=== PATIENT | male | born 1955 | race Caucasian/White ===

== ENCOUNTER 2020-10-16 11:00 | Outpatient (CLI) | payer MEDICARE, BC, SELFPAY ==
--- NOTE | ~2020-10-16 | XR_ITS ---
XR abdomen/kub 1V DATE: 10/16/2020 11:22 INDICATION: Gross hematuria. Kidney stones. TECHNIQUE: AP projection, 2 views COMPARISON: 12/30/2018 KUB. FINDINGS: Approximately 7 mm calcification overlies the upper pole left kidney. Approximately 8 mm ca lcified. Overlies the lower pole of the left kidney. No visceromegaly is evident. The psoas shadows are intact. No evidence of bowel obstruction. Numerous bilateral calcified pelvic phleboliths. IMPRESSION: Left nephrolithiasis Reviewed, dictated and finalized at [facility]. Reviewed, dictated and finalized at location [facility]. NFORMATICS SPECIALIST IMPRESSION: Left nephrolithiasis
== END 2020-10-16 11:01 | disposition home or self-care (01) ==
LOC: ANHIMG 11:05
PROVIDERS: PCP Emergency Medicine; Visit Provider Urology
DX: R31.0 Gross hematuria (principal); N20.0 Calculus of kidney
CPT/HCPCS: 74018

== ENCOUNTER → 2021-01-20 00:57 | Outpatient (CLI) | payer MEDICARE, BC, SELFPAY ==
[2021-01-21 00:06] LABS: SARS-CoV-2 RNA PCR Negative
== END ==
PROVIDERS: PCP Emergency Medicine; Visit Provider Internal Medicine Gastroenterology
DX: Z01.812 Encounter for preprocedural laboratory examination (principal); Z20.822 Contact with and (suspected) exposure to COVID-19
CPT/HCPCS: C9803; U0003; U0005

== ENCOUNTER 2021-01-23 02:45 | Day surgery (SDC) | payer MEDICARE, BC, SELFPAY ==
[2021-01-11 13:23] VITALS: BMI 32.8
[2021-01-23 10:44] VITALS: BP 127/86; PULSE 77; RESP 20; TEMP 35.9; O2SAT 97; BMI 33.0
[2021-01-23] MEDS: LACTATED RINGERS 1,000 ML 150 ML IV CONT (10:55)
[2021-01-23 10:56] LABS: Glucose Point of Care 126 (65-105)
--- NOTE | 2021-01-23 11:03 | WPDANESEPPF ---
Anes - Initial Pre Proc Eval Procedure: Operation Date: 01/23/21 11:30 Proposed Procedures p Screening Colonoscopy - Brigido Dey MD Date/Time: 01/23/21 11:03 Surgeon: Brigido Dey MD Pre Op Diagnosis: neoplasm screening Patient Data Age: 65 Gender: M Height: 6 ft Weight: 110.3 kg Last Vital Signs Temp 96.7 F L 01/23/21 10:44 Pulse 77 01/23/21 10:44 Resp 20 01/23/21 10:44 BP 127/86 01/23/21 10:44 Pulse Ox 97 01/23/21 10:44 Allergies Allergy/AdvReac Type Severity Reaction Status Date / Time No Known Allergies Allergy Verified 01/23/21 10:31 Home Medications Medication Instructions Recorded Confirmed Type albuterol sulfate 2.5 mg INHALATION Q6H 07/27/20 01/23/21 History amlodipine 10 mg tablet 10 mg PO DAILY 07/27/20 01/23/21 History antiarthritic combination no.2 900 900 mg PO DAILY 07/27/20 01/23/21 History mg tablet aspirin 325 mg tablet 325 mg PO DAILY 07/27/20 01/23/21 History cholecalciferol (vitamin D3) 50 50 mcg PO DAILY 07/27/20 01/23/21 History mcg (2,000 unit) capsule multivitamin 1 tablet PO DAILY 07/27/20 01/23/21 History zolpidem 10 mg tablet 10 mg PO .bedtime tablet 07/27/20 01/23/21 History calcium citrate-vitamin D3 1 tablet PO DAILY 01/11/21 01/23/21 History [Calcium Citrate + D] dulaglutide [Trulicity] See Rx Instructions .ROUTE .COMPLEX 01/11/21 01/23/21 History metoprolol succinate 50 mg PO DAILY 01/11/21 01/23/21 History rosuvastatin 40 mg PO DAILY 01/11/21 01/23/21 History Laboratory Tests 01/23/21 10:49 POC Capillary Glucose 126 mg/dl H mg/dl (65-105) Patient hx anesthesia problems: none Family hx anesthesia problems: none PMFSH Past Medical History Medical History (Updated 07/28/20 @ 13:59 by Augusto Manuel APRN) Asthma Essential hypertension Insomnia Kidney stones Obstructive sleep apnea Family History Family History Mother Acute myocardial infarction, Onset Age: 83 Pulmonary fibrosis Osteoporosis Daughter Migraine Father Hypertension COPD (chronic obstructive pulmonary disease) Tongue cancer Sibling Brain tumor Son Migraine Social History Social History Smoking status: Never smoker Alcohol intake: never Substance use: never Substance use type: does not use Living arrangements: with family Gender identity (if verbalized by the patient): Male Spiritual care concerns: No Anes - Eval Final PreProcedure Day of Procedure 01/23/21 11:03 Patient weight: obese Heart: regular rate and rhythm Lungs: clear to auscultation Airway: Mallampati scale class III Neurological: alert and oriented Last oral intake: >/= 8 hours ASA classification: III Emergent: no Anesthetic plan: proceed Anesthesia type and monitoring: general GIVS and standard monitoring Informed Consent: The patient's anesthetic plan and its attendant risks and benefits were discussed with the patient/family/POA. Questions were solicited and answers provided to the satisfaction of the patient/family/POA.
[2021-01-23 11:57] VITALS: BP 112/57; PULSE 75; RESP 16; O2SAT 98
--- NOTE | 2021-01-23 12:01 | PM.HPGS ---
History of Present Illness History of Present Illness Consent: Risks, benefits, and alternatives have been discussed and questions answered. Patient agrees to proceed with procedure. Chief complaint: neoplasm screening Narrative: Jhony Martinez is a 65 year old male referred for colon cancer screening. He had a polyp removed about 12 years ago Review of Systems Review of Systems: All systems reviewed & are unremarkable except as noted in HPI and below PMFSH Past Medical History Medical History Asthma Essential hypertension Insomnia Kidney stones Obstructive sleep apnea Family History Family History Mother Acute myocardial infarction, Onset Age: 83 Pulmonary fibrosis Osteoporosis Daughter Migraine Father Hypertension COPD (chronic obstructive pulmonary disease) Tongue cancer Sibling Brain tumor Son Migraine Social History Social History Smoking status: Never smoker Alcohol intake: never Substance use: never Substance use type: does not use Living arrangements: with family Gender identity (if verbalized by the patient): Male Spiritual care concerns: No Meds Home Medications and Allergies Home Medications Medication Instructions Recorded Confirmed Type albuterol sulfate 2.5 mg INHALATION Q6H 07/27/20 01/23/21 History amlodipine 10 mg tablet 10 mg PO DAILY 07/27/20 01/23/21 History antiarthritic combination no.2 900 900 mg PO DAILY 07/27/20 01/23/21 History mg tablet aspirin 325 mg tablet 325 mg PO DAILY 07/27/20 01/23/21 History cholecalciferol (vitamin D3) 50 50 mcg PO DAILY 07/27/20 01/23/21 History mcg (2,000 unit) capsule multivitamin 1 tablet PO DAILY 07/27/20 01/23/21 History zolpidem 10 mg tablet 10 mg PO .bedtime tablet 07/27/20 01/23/21 History Trulicity See Rx Instructions .ROUTE .COMPLEX 01/11/21 01/23/21 History calcium citrate-vitamin D3 1 tablet PO DAILY 01/11/21 01/23/21 History [Calcium Citrate + D] metoprolol succinate 50 mg PO DAILY 01/11/21 01/23/21 History rosuvastatin 40 mg PO DAILY 01/11/21 01/23/21 History Allergies Allergy/AdvReac Type Severity Reaction Status Date / Time No Known Allergies Allergy Verified 01/23/21 10:31 Vital Signs Vital Signs - 24 hr 01/23/21 10:44 Temperature 35.9 C L Pulse Rate 77 Respiratory Rate 20 Blood Pressure 127/86 Pulse Oximetry 97 Exam Resp: Auscultation: clear to auscultation bilaterally Cardio: Rate: regular rate Rhythm: regular rhythm GI: GI Palp: Yes Soft to palpation and No Tenderness to palpation present (GI) Assessment and Plan Assessment and plan (1) Colon cancer screening: Code(s): Z12.11 - Encounter for screening for malignant neoplasm of colon Status: Acute Assessment and Plan: Colonoscopy with possible biopsy or polypectomy or cautery or injection of substances.
[2021-01-23 12:07] VITALS: BP 107/59; PULSE 73; RESP 24; O2SAT 97
[2021-01-23 12:17] VITALS: BP 110/62; PULSE 70; RESP 20; O2SAT 98
== END 2021-01-23 12:30 | disposition home or self-care (01) ==
PROVIDERS: PCP Emergency Medicine; Visit Provider Internal Medicine Gastroenterology
PROC: 0DJD8ZZ Inspection of Lower Intestinal Tract, Via Natural or Artificial Opening Endoscopic (ICD-10-PCS; CPT 45378; principal; 2021-01-23 11:30)
DX: Z12.11 Encounter for screening for malignant neoplasm of colon (principal); Z86.010 Personal history of colon polyps; I10 Essential (primary) hypertension; J45.909 Unspecified asthma, uncomplicated; G47.33 Obstructive sleep apnea (adult) (pediatric); Z79.51 Long term (current) use of inhaled steroids; Z79.82 Long term (current) use of aspirin; E66.9 Obesity, unspecified; Z68.33 Body mass index [BMI] 33.0-33.9, adult
CPT/HCPCS: G0105; 82948; J2001; J2704; J7120

== ENCOUNTER 2022-07-19 08:32 | Outpatient (CLI) | payer MEDICARE, BC, SELFPAY ==
[2022-07-19 09:29] LABS: Alanine Aminotransferase 37 U/L (6-50); Albumin Level 4.4 g/dL (3.5-5.1); Alkaline Phosphatase 87 U/L (38-126); Anion Gap 10 mmol/L (8-16); Aspartate Amino Transferase 36 U/L (17-59); Bilirubin,Total 0.4 mg/dL (0.2-1.3); Blood Urea Nitrogen 16 mg/dL (9-20); Calcium 8.7 mg/dL (8.4-10.2); Carbon Dioxide 27 mmol/L (22-30); Chloride 105 mmol/L (98-107); Estimated Glomerular Filt Rate > 60; Glucose 128 mg/dL (65-110); Potassium 3.7 mmol/L (3.4-5.0); Sodium 142 mmol/L (137-145)
== END 2022-07-19 08:33 | disposition home or self-care (01) ==
PROVIDERS: PCP Emergency Medicine; Visit Provider Internal Medicine Cardiovascular Disease
DX: E11.59 Type 2 diabetes mellitus with other circulatory complications (principal); I15.2 Hypertension secondary to endocrine disorders
CPT/HCPCS: 36415; 80053

== ENCOUNTER 2024-02-09 14:12 | Outpatient (CLI) | payer MEDICARE, BC, SELFPAY ==
--- NOTE | 2024-02-09 14:25 | ECG_ITS ---
SEE SCANNED COPY FOR CONFIRMED REPORT MTDD
[2024-02-09 15:12] LABS: Anion Gap 7 mmol/L (4-12); Blood Urea Nitrogen 17 mg/dL (9-20); Calcium 9.4 mg/dL (8.4-10.2); Carbon Dioxide 29 mmol/L (22-30); Chloride 104 mmol/L (98-107); Estimated Glomerular Filt Rate > 60; Glucose 154 mg/dL (65-110); Potassium 3.9 mmol/L (3.4-5.0); Sodium 140 mmol/L (137-145)
[2024-02-09 15:14] LABS: Partial Thromboplastin Time 29.2 Seconds (22.3-36.8); Prothrombin Time 13.3 Seconds (11.1-14.7)
== END 2024-02-09 14:13 | disposition home or self-care (01) ==
PROVIDERS: Anesthesiology; PCP Emergency Medicine; Visit Provider Urology
DX: N20.0 Calculus of kidney (principal); I10 Essential (primary) hypertension; E11.9 Type 2 diabetes mellitus without complications; Z01.818 Encounter for other preprocedural examination
CPT/HCPCS: 36415; 80048; 85610; 85730; 87086; 93005

== ENCOUNTER 2024-02-13 00:57 | Day surgery (SDC) | payer MEDICARE, BC, SELFPAY ==
[2024-02-09 09:33] VITALS: BMI 32.5
--- NOTE | 2024-02-09 09:59 | PC.NURSE ---
Report to the Outpatient Waiting Room, entrance under the green pavilion located off [facility], at time __12:00PM on date ____02/13/24___. Planned Procedure Time: __2:30PM . Time changes happen often and if your time is changed the preop area will call you the afternoon before. - You and your visitor will be asked to self-screen and do not enter if you have any COVID symptoms. - A mask is optional within the hospital at this time. Patients may have clear liquids (water, carbonated beverages, clear teas, apple juice) until 3 hours prior to surgery with a maximum of 20 ounces. - No food from midnight until time of surgery. Take the following medications with a SIP of water the morning of surgery: AMLODIPINE, METOPROLOL DO NOT STOP ANY OF YOUR OTHER PRESCRIPTION MEDICATIONS PRIOR TO SURGERY ?EXCEPT THE FOLLOWING Medications to discontinue per physician __HOLD ASPIRIN AND ALL VITAMINS/SUPPLEMENTS 7 DAYS PRE-OP PER DR AGUIRRE Date to take last dose 02/05/24 Please no make-up, nail chadian, hairspray, perfume, deodorant, or body powder the day of surgery. No jewelry (including any body piercings) or valuables the day of surgery, leave them at home. Please take a shower or bath the night before, or the morning of, surgery with an antibacterial soap. Wear comfortable, loose fitting clothing. - Jewelry must be removed prior to entering the operating room. Rings and piercings that are not removed may be cut off. - The hospital will not accept responsibility for valuables. - Please leave all valuables, including medications, at home the day of surgery. If you are going home after surgery, a licensed bus driver school must drive you home. - NO public transportation without another adult if you receive anesthesia. - We recommend that an adult stay with you for 24 hours following discharge. - We also recommend that you do not drive, make important decision, drink alcoholic beverages, or take any drugs that were not prescribed by your health care provider for at least 24 hours after your discharge time. Follow any additional instructions given to you from your surgeon. If you or anyone in your household have experienced Covid symptoms in the past week, please notify your surgeon or the nurse liaison at the phone number below for possible testing. Telephone instructions given to ___PATIENT and asked if any additional questions and then verbalized understanding. Patient advised to call surgeon office or pre surgery nurse liaison [phone] if any additional questions.
--- NOTE | 2024-02-12 08:32 | PM.HPGS ---
History of Present Illness History of Present Illness Consent: Risks, benefits, and alternatives have been discussed and questions answered. Patient agrees to proceed with procedure. Chief complaint: bladder and kidney stones Narrative: Jhony Martinez is a 69 year old male with a history of recurrent urolithiasis who has required ESWL in the past. Imaging several months ago revealed two 6 mm stones in his left kidney. One of these passed spontaneously. He now elects for ESWL for the residual left renal s He is aware the risk including, but not limited to, adverse cardiopulmonary events, hematuria, perinephric hematoma and need for additional procedures. tone. Review of Systems Review of Systems: All systems reviewed & are unremarkable except as noted in HPI and below PMFSH Past Medical History Medical History Asthma Essential hypertension Insomnia Kidney stones Obstructive sleep apnea Family History Family History Mother Acute myocardial infarction, Onset Age: 83 Pulmonary fibrosis Osteoporosis Daughter Migraine Father Hypertension COPD (chronic obstructive pulmonary disease) Tongue cancer Sibling Brain tumor Son Migraine Social History Social History Smoking status: Never smoker Alcohol intake: never Substance use: never Substance use type: does not use Living arrangements: with family Additional living arrangements comments: Gender identity (if verbalized by the patient): Male Spiritual care concerns: No Meds Home Medications and Allergies Home Medications Medication Instructions Recorded Confirmed Type albuterol sulfate 2.5 mg/3 mL 2.5 mg inhalation Q6H PRN 07/27/20 02/09/24 History (0.083 %) solution for nebulization Shortness Of Breath Or Wheezing amlodipine 10 mg tablet (Norvasc) 10 mg PO QAM 07/27/20 02/09/24 History cholecalciferol (vitamin D3) 50 50 mcg PO DAILY 07/27/20 02/09/24 History mcg (2,000 unit) capsule multivitamin 1 tablet PO DAILY 07/27/20 02/09/24 History zolpidem 10 mg tablet (Ambien) 10 mg PO .bedtime 07/27/20 02/09/24 History calcium citrate 315 mg-vitamin D3 1 tablet PO DAILY 01/11/21 02/09/24 History 5 mcg (200 unit) tablet (Calcium Citrate + D) metoprolol succinate 50 mg 50 mg PO QAM 01/11/21 02/09/24 History tablet,extended release 24 hr rosuvastatin 40 mg tablet 40 mg PO HS 01/11/21 02/09/24 History albuterol sulfate 90 mcg/actuation 1 - 2 puff inhalation Q4-6H PRN 03/12/22 02/09/24 Rx aerosol inhaler shortness of breath or wheezing #8.5 grams aspirin 81 mg tablet,delayed 81 mg PO DAILY 02/09/24 02/09/24 History release (Adult Low Dose Aspirin) glucosamine sulf dipot 1 cap PO DAILY 02/09/24 02/09/24 History chlr,msm,chond 550 mg-C 30 mg-leyda 1 mg capsule (Glucosamine Chondroitin) losartan 50 mg tablet 50 mg PO HS 02/09/24 02/09/24 History tamsulosin 0.4 mg capsule 0.4 mg PO DAILY 02/09/24 02/09/24 History tirzepatide 5 mg/0.5 mL 5 mg subcut WEEKLY 02/09/24 02/09/24 History subcutaneous pen injector (Mounjaro) Allergies Allergy/AdvReac Type Severity Reaction Status Date / Time No Known Allergies Allergy Verified 02/09/24 09:25 Exam Const: General: no acute distress Resp: Effort & Inspection: normal respiratory effort GI: Inspection: non-distended GI Palp: No abdominal tenderness and No Guarding due to palpation present (GI) Auscultation: normal bowel sounds Assessment and Plan Assessment and plan (1) Left renal stone: Code(s): N20.0 - Calculus of kidney Status: Acute
[2024-02-13] VITALS (9 sets, daily range): BP systolic 106–134; BP diastolic 63–85; PULSE 62–78; RESP 12–16; TEMP 36.3–36.7; O2SAT 96–100; BMI 32.8
--- NOTE | ~2024-02-13 | XR_ITS ---
XR abdomen/kub 1V 02/13/2024 12:16 Indication: Preop ESWL Procedure: KUB Comparison: 10/16/2020 Findings: Bowel gas pattern nonobstructive. There is a left renal stone. There are bladder stones. Errol wel gas pattern nonobstructive. No acute osseous abnormality. Impression: 1: Left renal and bladder stones. Reviewed, dictated and finalized at location B. Impression: 1: Left renal and bladder stones.
--- NOTE | 2024-02-13 06:19 | WPDHPUPDATE1 ---
History and Physical Update Update Date/Time: 02/13/24 06:19 History and Physical has been reviewed, including an updated exam of the patient. There are NO changes in the patient's condition. Risks, benefits, and alternatives have been discussed and questions answered. Patient agrees to proceed with procedure.
--- NOTE | 2024-02-13 12:40 | WPDANESEPPF ---
Anes - Initial Pre Proc Eval Procedure: Operation Date: 02/13/24 14:00 Proposed Procedures p Left Extracorporeal Shock Wave Lithotripsy, - João Crane MD s Cystoscopy, Holmium Laser Lithotripsy, Bladder Stone Extraction, Left Ureteral Stent, Possible Right Ureteroscopy with Right Stone Extraction - João Crane MD Date/Time: 02/13/24 12:40 Surgeon: João Crane MD Pre Op Diagnosis: bladder and kidney stones Patient Data Age: 69 Gender: M Height: 1.8 m Weight: 106 kg Allergies Allergy/AdvReac Type Severity Reaction Status Date / Time No Known Allergies Allergy Verified 02/09/24 09:25 Home Medications Medication Instructions Recorded Confirmed Type albuterol sulfate 2.5 mg/3 mL 2.5 mg inhalation Q6H PRN 07/27/20 02/09/24 History (0.083 %) solution for nebulization Shortness Of Breath Or Wheezing amlodipine 10 mg tablet (Norvasc) 10 mg PO QAM 07/27/20 02/09/24 History cholecalciferol (vitamin D3) 50 50 mcg PO DAILY 07/27/20 02/09/24 History mcg (2,000 unit) capsule multivitamin 1 tablet PO DAILY 07/27/20 02/09/24 History zolpidem 10 mg tablet (Ambien) 10 mg PO .bedtime 07/27/20 02/09/24 History calcium citrate 315 mg-vitamin D3 1 tablet PO DAILY 01/11/21 02/09/24 History 5 mcg (200 unit) tablet (Calcium Citrate + D) metoprolol succinate 50 mg 50 mg PO QAM 01/11/21 02/09/24 History tablet,extended release 24 hr rosuvastatin 40 mg tablet 40 mg PO HS 01/11/21 02/09/24 History albuterol sulfate 90 mcg/actuation 1 - 2 puff inhalation Q4-6H PRN 03/12/22 02/09/24 Rx aerosol inhaler shortness of breath or wheezing #8.5 grams aspirin 81 mg tablet,delayed 81 mg PO DAILY 02/09/24 02/09/24 History release (Adult Low Dose Aspirin) glucosamine sulf dipot 1 cap PO DAILY 02/09/24 02/09/24 History chlr,msm,chond 550 mg-C 30 mg-leyda 1 mg capsule (Glucosamine Chondroitin) losartan 50 mg tablet 50 mg PO HS 02/09/24 02/09/24 History tamsulosin 0.4 mg capsule 0.4 mg PO DAILY 02/09/24 02/09/24 History tirzepatide 5 mg/0.5 mL 5 mg subcut WEEKLY 02/09/24 02/09/24 History subcutaneous pen injector (Mounjaro) Patient hx anesthesia problems: none Family hx anesthesia problems: none Results Review: All pre-operative results and documents have been reviewed as part of the pre-operative evaluation. [facility] Past Medical History Medical History Asthma Essential hypertension Insomnia Kidney stones Obstructive sleep apnea Family History Family History Mother Acute myocardial infarction, Onset Age: 83 Pulmonary fibrosis Osteoporosis Daughter Migraine Father Hypertension COPD (chronic obstructive pulmonary disease) Tongue cancer Sibling Brain tumor Son Migraine Social History Social History Smoking status: Never smoker Alcohol intake: never Substance use: never Substance use type: does not use Living arrangements: with family Additional living arrangements comments: Gender identity (if verbalized by the patient): Male Spiritual care concerns: No Anes - Eval Final PreProcedure Day of Procedure 02/13/24 12:40 Patient weight: obese Heart: regular rate and rhythm Lungs: clear to auscultation Airway: Mallampati scale class III Neurological: alert and oriented Last oral intake: >/= 8 hours ASA classification: III Emergent: no Anesthetic plan: proceed Anesthesia type and monitoring: general LMA and standard monitoring Results Review: All pre-operative results and documents have been reviewed as part of the pre-operative evaluation. Informed Consent: The patient's anesthetic plan and its attendant risks and benefits were discussed with the patient/family/POA. Questions were solicited and answers provided to the satisfaction of the patient/family/P
[2024-02-13] MEDS: LACTATED RINGERS 1,000 ML 30 ML IV CONT ×2 (12:45→14:52)
[2024-02-13 12:55] LABS: Glucose Point of Care 122 mg/dl (65-105)
[2024-02-13] MEDS: ceFAZolin 2 GM/D5W 50 ML 2 GM/50 ML BAG IVPB (13:39)
--- NOTE | 2024-02-13 14:31 | W.PM.PROC2 ---
Procedure Note - Detailed Date of Procedure 02/13/24 Pre-op Diagnosis Bladder, left kidney stone, possible right ureteral stone Post-op Diagnosis Other ( 1. 1.7 cm bladder stone - 2. 1.5 cm left renal stones space space - 3. No right ureteral stone) Procedure Performed 1. Cystoscopy with right ureteroscopy 2. Left stent placement 3. Laser lithotripsy and extraction bladder stone 4. Left ESWL Surgeon João Crane MD Anesthesia General Description of Procedure patient is brought to the operative suite where he was prepped and draped in routine sterile fashion while in a dorsal lithotomy position after the uneventful induction of a general anesthetic. Cystoscopy was undertaken with a 19 F flexible cystoscope. A 0.035 in glidewire was advanced into his right renal pelvis. The distal ureter was dilated with an 8 F/10 F dilator. Ureteroscopy was undertaken with a short tapered semi-rigid ureteral scope to the vessels. There are no distal stones suggesting has spontaneously passed the stone was previously identified on imaging. then placed a 0.035 in glidewire to the right renal pelvis under fluoroscopy I placed a 4.8 F variable length stent with proximal coil in the renal pelvis distal coil in the bladder. Using a 1000 micron holmium laser fiber fractured the large bladder stone into pieces which could evacuated with the Zbigniew the focal point of Lithotripter was placed in his large left renal stone where 2500 shocks were delivered at a power setting to 4. There appeared to be good fragmentation that stone. Patient tolerated this procedure well was taken the recovery in good .condition Drains Yes Packing No Pathology Yes Complications No immediate complications Disposition PACU
[2024-02-13 15:00] LABS: Glucose Point of Care 92 mg/dl (65-105)
[2024-02-13] MEDS: fentaNYL CITRATE INJ (*CRX) 100 MCG/2 ML VIAL 25 MCG IV PUSH ×5 (15:12→16:57)
[2024-02-13] MEDS: oxyCODONE HCL (*CRX) 5 MG TAB IR PO (16:19)
[2024-02-13] MEDS: KETOROLAC 30 MG/ML VIAL (*BKC) IV PUSH (17:11)
== END 2024-02-13 17:40 | disposition home or self-care (01) ==
PROVIDERS: PCP Registered Nurse; Visit Provider Urology
PROC: (CPT 50590; principal; 2024-02-13 14:00)
PROC: (CPT 52352; 2024-02-13 14:00)
DX: N20.0 Calculus of kidney (principal); N21.0 Calculus in bladder; I10 Essential (primary) hypertension; J45.909 Unspecified asthma, uncomplicated; G47.33 Obstructive sleep apnea (adult) (pediatric); G47.00 Insomnia, unspecified; E66.9 Obesity, unspecified; Z68.32 Body mass index [BMI] 32.0-32.9, adult; Z79.51 Long term (current) use of inhaled steroids; Z79.82 Long term (current) use of aspirin; Z79.85 Long-term (current) use of injectable non-insulin antidiabetic drugs
CPT/HCPCS: 50590; 52332; 52317; 74018; 82365; 82948; 88300; A9270; C1769; C2617; J0690; J1100; J1596; J1885; J2250; J2405; J2704; J3010; J7030; J7120

== ENCOUNTER 2024-04-21 09:13 | Outpatient (CLI) | payer MEDICARE, BC, SELFPAY ==
[2024-04-21 10:50] LABS: Anion Gap 7 mmol/L (4-12); Blood Urea Nitrogen 16 mg/dL (9-20); Calcium 9.2 mg/dL (8.4-10.2); Carbon Dioxide 31 mmol/L (22-30); Chloride 103 mmol/L (98-107); Estimated Glomerular Filt Rate > 60; Glucose 145 mg/dL (65-110); Potassium 4.2 mmol/L (3.4-5.0); Sodium 141 mmol/L (137-145)
== END 2024-04-21 09:14 | disposition home or self-care (01) ==
LOC: ANHSURGERY 09:17
PROVIDERS: Anesthesiology; PCP Registered Nurse; Visit Provider Surgery
DX: Z01.818 Encounter for other preprocedural examination (principal); K40.90 Unilateral inguinal hernia, without obstruction or gangrene, not specified as recurrent
CPT/HCPCS: 36415; 80048; 86850; 86900; 86901

== ENCOUNTER 2024-04-23 00:21 | Day surgery (SDC) | payer MEDICARE, BC, SELFPAY ==
[2024-04-20 11:05] VITALS: BMI 30.6
--- NOTE | 2024-04-20 11:06 | PC.NURSE ---
Report to the Outpatient Waiting Room, entrance under the green pavilion located off [facility], at time _1100_ on date _[id number]_. Planned Procedure Time: _1pm_. Time changes happen often and if your time is changed the preop area will call you the afternoon before. - You and your visitor will be asked to self-screen and do not enter if you have any COVID symptoms. - A mask is optional within the hospital at this time. Patients may have clear liquids (water, carbonated beverages, clear teas, apple juice) until 3 hours prior to surgery with a maximum of 20 ounces. - No food from midnight until time of surgery Take the following medications with a SIP of water the morning of surgery: __Amlodipine and Metoprolol DO NOT STOP ANY OF YOUR OTHER PRESCRIPTION MEDICATIONS PRIOR TO SURGERY ?EXCEPT THE FOLLOWING Medications to discontinue per physician All vitamins and supplements Date to take last dose___Stop today. Please no make-up, nail welsh, hairspray, perfume, deodorant, or body powder the day of surgery. No jewelry (including any body piercings) or valuables the day of surgery, leave them at home. Please take a shower or bath the night before, or the morning of, surgery with an antibacterial soap. Wear comfortable, loose fitting clothing. - Jewelry must be removed prior to entering the operating room. Rings and piercings that are not removed may be cut off. - The hospital will not accept responsibility for valuables. - Please leave all valuables, including medications, at home the day of surgery. If you are going home after surgery, a licensed ice delivery driver must drive you home. - NO public transportation without another adult if you receive anesthesia. - We recommend that an adult stay with you for 24 hours following discharge. - We also recommend that you do not drive, make important decision, drink alcoholic beverages, or take any drugs that were not prescribed by your health care provider for at least 24 hours after your discharge time. Follow any additional instructions given to you from your surgeon. If you or anyone in your household have experienced Covid symptoms in the past week, please notify your surgeon or the nurse liaison at the phone number below for possible testing. Telephone instructions given to _Jhony and Oanh__and asked if any additional questions and then verbalized understanding. Patient advised to call surgeon office or pre surgery nurse liaison [phone] if any additional questions.
[2024-04-23] VITALS (9 sets, daily range): BP systolic 100–115; BP diastolic 60–72; PULSE 75–83; RESP 12–20; TEMP 36.2–36.7; O2SAT 92–100
[2024-04-23] MEDS: ACETAMINOPHEN 500 MG TABLET 1000 MG PO (10:00)
--- NOTE | 2024-04-23 10:10 | WPDANESEPPF ---
Anes - Initial Pre Proc Eval Procedure: Operation Date: 04/23/24 12:00 Proposed Procedures p Robotic Assisted Laparoscopic Left Inguinal Hernia Repair with Mesh, Possible Open - Taurus Dooley MD Date/Time: 04/23/24 10:10 Surgeon: Taurus Dooley MD Pre Op Diagnosis: Reducible left inguinal hernia Patient Data Age: 69 Gender: M Height: 1.8 m Weight: 99.5 kg Allergies Allergy/AdvReac Type Severity Reaction Status Date / Time No Known Allergies Allergy Verified 04/20/24 10:56 Home Medications Medication Instructions Recorded Confirmed Type amlodipine 10 mg tablet (Norvasc) 10 mg PO QAM 07/27/20 04/23/24 History cholecalciferol (vitamin D3) 50 50 mcg PO DAILY 07/27/20 04/23/24 History mcg (2,000 unit) capsule multivitamin 1 tablet PO DAILY 07/27/20 04/23/24 History zolpidem 10 mg tablet (Ambien) 10 mg PO .bedtime 07/27/20 04/23/24 History calcium citrate 315 mg-vitamin D3 1 tablet PO DAILY 01/11/21 04/23/24 History 5 mcg (200 unit) tablet (Calcium Citrate + D) rosuvastatin 40 mg tablet 40 mg PO HS 01/11/21 04/23/24 History aspirin 81 mg tablet,delayed 81 mg PO DAILY 02/09/24 04/23/24 History release (Adult Low Dose Aspirin) glucosamine sulf dipot 1 cap PO DAILY 02/09/24 04/23/24 History chlr,msm,chond 550 mg-C 30 mg-leyda 1 mg capsule (Glucosamine Chondroitin) losartan 50 mg tablet 50 mg PO HS 02/09/24 04/23/24 History tamsulosin 0.4 mg capsule 0.4 mg PO DAILY 02/09/24 04/23/24 History tirzepatide 5 mg/0.5 mL 5 mg subcut WEEKLY 02/09/24 04/23/24 History subcutaneous pen injector (Mounjaro) albuterol sulfate 90 mcg/actuation 1 - 2 puff inhalation Q4-6H PRN 03/12/24 04/20/24 Rx aerosol inhaler shortness of breath or wheezing #8.5 grams loratadine 10 mg tablet 10 mg PO DAILY 04/20/24 04/23/24 History metoprolol succinate 100 mg 100 mg PO DAILY 04/20/24 04/23/24 History tablet,extended release 24 hr montelukast 10 mg tablet 10 mg PO DAILY 04/20/24 04/23/24 History nitroglycerin 0.4 mg sublingual 0.4 mg sublingual TID PRN Chest 04/20/24 04/20/24 History tablet Pain Patient hx anesthesia problems: none Family hx anesthesia problems: none Results Review: All pre-operative results and documents have been reviewed as part of the pre-operative evaluation. [facility] Past Medical History Medical History (Updated 04/23/24 @ 10:11 by Tres Ambrose DO) Asthma CAD (coronary artery disease) Diabetes Essential hypertension Insomnia Kidney stones Obstructive sleep apnea TIA (transient ischemic attack) Surgical History Surgical History H/O nephrolithotomy with removal of calculi History of vasectomy Family History Family History Mother Acute myocardial infarction, Onset Age: 83 Pulmonary fibrosis Osteoporosis Daughter Migraine Father Hypertension COPD (chronic obstructive pulmonary disease) Tongue cancer Sibling Brain tumor Son Migraine Social History Social History Smoking status: Never smoker Alcohol intake: never Substance use: never Substance use type: does not use Do You Feel Safe in your Home?: Yes Lack of Transportation: No Lack of Food: Never True Current Housing: I Have Housing Concerned About Future Housing: No Difficulty Paying Gas/Electric Bills: No Difficulty Paying for Meds: No Currently Unemployed: No Education: Associate Degree Difficulty w/ Childcare or Family Care: No Living arrangements: with family Additional living arrangements comments: Occupation/Education: retired Gender identity (if verbalized by the patient): Male Spiritual care concerns: No Anes - Eval Final PreProcedure Day of Procedure 04/23/24 10:10 Patient weight: obese Heart: regular rate and rhythm Lungs: clear to a
[2024-04-23] MEDS: LACTATED RINGERS 1,000 ML 30 ML IV CONT ×3 (10:25→14:36)
[2024-04-23] MEDS: KETOROLAC 15 MG/ML VIAL (*BKC) IV PUSH (10:26)
[2024-04-23 10:39] LABS: Glucose Point of Care 132 mg/dl (65-105)
--- NOTE | 2024-04-23 11:49 | WPDHPUPDATE1 ---
History and Physical Update Update Date/Time: 04/23/24 11:49 History and Physical has been reviewed, including an updated exam of the patient. There are NO changes in the patient's condition. Risks, benefits, and alternatives have been discussed and questions answered. Patient agrees to proceed with procedure.
[2024-04-23] MEDS: ceFAZolin 2 GM/D5W 50 ML 2 GM/50 ML BAG IVPB (12:13)
[2024-04-23] MEDS: LIDO 1%/EPINEPHRINE 1:100,000 20 ML VIAL 30 ML INFILTRATE (12:43)
[2024-04-23] MEDS: BUPivacaine HCL 0.5% PF 30 ML VIAL INFILTRATE (12:44)
--- NOTE | 2024-04-23 14:20 | W.PM.PROC2 ---
Procedure Note - Detailed Date of Procedure 04/23/24 Pre-op Diagnosis Reducible left inguinal hernia Post-op Diagnosis Same Procedure Performed Robotic assisted laparoscopic left inguinal hernia repair with Bard 3D mid weight mesh. Surgeon Taurus Dooley MD Seed Specialist Alexandra WYNNE Anesthesia General Indications Patient is a 69-year-old gentleman who presented with complaints of pain (region. He had previous imaging with a CT scan abdomen pelvis showing a fat containing left inguinal hernia. On examination of the left inguinal hernia which was reducible. He presents now for a elective laparoscopic robotic assisted left inguinal hernia repair with mesh. Findings Patient had a indirect left inguinal hernia containing a very large cord lipoma. Description of Procedure After informed consent was obtained patient brought to the operating room he was placed in the supine position and general endotracheal anesthesia was administered. The bilateral groin regions and abdomen were then prepped and draped usual sterile fashion. A time-out was then performed correctly identifying the patient as well as procedure to be performed. He was given perioperative IV antibiotics. I then entered the abdomen the left upper quadrant utilizing a 10mm Optiview port. Once inside the abdomen insufflated to adequate pneumoperitoneum of 15mmHg CO2. Patient was then placed in the 15degree head-down Trendelenburg position to small bowel to fall out of the pelvis. I could then see a indirect left inguinal hernia. No evidence of right inguinal hernia was seen. I then placed additional robotic trocar ports across the mid abdomen. Then I scrubbed out the procedure sat down at the robotic console to perform the dissection robotically. In [place] robot was then brought the patient's bedside and the robotic arms were then attached to the robotic ports. Robotic instruments were advanced into the abdomen under direct visualization. I 1st started by making a preperitoneal flap across the lower left abdominal wall. It started medial to the left median umbilical ligament and extending all the way almost to the left anterior superior iliac spine. I then dissected down this preperitoneal space identifying the inferior epigastric vessels. I dissected the left side the bladder down and identified the pubic tubercle. I then dissected down to the space of Retzius for couple cm. Upon the from the left cord structures I identified a very large left cord lipoma extending down into the dilated internal ring. I then dissected this large cord lipoma away from the cord structures and resected it proximally. It was left in the abdomen to be removed at the end the procedure. I then further dissected the peritoneum off of the cord structures and the vas deferens. I dissected proximally up until the point where the vas deferens and testicular vessels desiccated. At this point I have made sure that I had enough proximal dissection the peritoneum so that the mesh would not roll up with closure of the peritoneum. I then measured and chose a loop extra-large extended piece of Bard 3D mid weight mesh measuring 17 x 12 cm. Then placed the mesh into the abdomen through the bedside graduate assistant 10mm trocar port site. The mesh was then placed into the left side of the groin dissected space and the medial part of the mesh was placed overlying the pubic tubercle and actually extended past the midline. The lower portion of mesh extended down into the space rectus for couple cm. The mesh covered the indirect defect well as the femoral space and the potential direct space. I then secured the mesh medially to the tissues around the pubic tubercle. Laterally the mesh was secured to the muscle anterior medial to the left anterior suprailiac spine. Additional sutures placed to approximate the mesh to the potential direct hernia space. The mesh laid out very nicely without any tension. I then proceeded to close t
[2024-04-23 14:24] LABS: Glucose Point of Care 160 mg/dl (65-105)
[2024-04-23] MEDS: fentaNYL CITRATE INJ (*CRX) 100 MCG/2 ML VIAL 25 MCG IV PUSH ×6 (14:39→15:01)
[2024-04-23] MEDS: oxyCODONE HCL (*CRX) 5 MG TAB IR PO (15:18)
== END 2024-04-23 15:55 | disposition home or self-care (01) ==
PROVIDERS: PCP Registered Nurse; Visit Provider Surgery
PROC: 8E0Y4CZ Robotic Assisted Procedure of Lower Extremity, Percutaneous Endoscopic Approach (ICD-10-PCS; CPT 49650; principal; 2024-04-23 12:00)
DX: K40.90 Unilateral inguinal hernia, without obstruction or gangrene, not specified as recurrent (principal); D17.6 Benign lipomatous neoplasm of spermatic cord; I10 Essential (primary) hypertension; I25.10 Atherosclerotic heart disease of native coronary artery without angina pectoris; J45.909 Unspecified asthma, uncomplicated; E11.9 Type 2 diabetes mellitus without complications; G47.00 Insomnia, unspecified; G47.33 Obstructive sleep apnea (adult) (pediatric); E66.9 Obesity, unspecified; Z68.31 Body mass index [BMI] 31.0-31.9, adult; Z79.82 Long term (current) use of aspirin; Z79.51 Long term (current) use of inhaled steroids; Z79.85 Long-term (current) use of injectable non-insulin antidiabetic drugs; Z98.890 Other specified postprocedural states; Z86.73 Personal history of transient ischemic attack (TIA), and cerebral infarction without residual deficits; Z85.810 Personal history of malignant neoplasm of tongue; Z82.49 Family history of ischemic heart disease and other diseases of the circulatory system
CPT/HCPCS: 49650; S2900; 82948; A9270; C1781; J0690; J1100; J1596; J1885; J2371; J2405; J2704; J3010; J7030; J7120

== ENCOUNTER 2025-08-26 09:41 | Outpatient (CLI) | payer MEDICARE, BC, SELFPAY ==
--- NOTE | ~2025-08-26 | XR_ITS ---
EXAM/PROCEDURE: XR abdomen/kub 1V HISTORY: Benign prostatic hyperplasia, KIDNEY STONES COMPARISON: 08/16/2024 TECHNIQUE: KUB FINDINGS: Punctate calcifications overlying the left upper quadrant with tiny urolithiasis not excluded. Several phleboliths appearing calcifications overlie the lower pelvis. Minimal small bowel gas is present. No grossly distended loops of bowel, large urolithiasis, or definite free air seen. Lung bases are clear. Bones appear intact. IMPRESSION: Nonspecific bowel gas pattern. Tiny urolithiases are not excluded. Reviewed, dictated and finalized at location A. NESS CONSULTANT
--- OUTSIDE RECORDS SUMMARY | 2025-08-26 10:59 | XMS_ITS | Clinical Summary ---
Author Organization [facility] [id number] Address [address] [place] [address] Care Team Providers Care Mosaic Worker Name Role Phone Lolly Shultz NP Primary Care Provider [phone] Allergies No known active allergies Medications amLODIPine (NORVASC) 10 mg tablet Take 1 tablet (10 mg total) by mouth daily Active zolpidem (AMBIEN) 10 mg tabletIndicatio ns:Sleep-Onset Insomnia Take 1 tablet (10 mg total) by mouth nightly as needed for sleep Active calcium carbonate-vitam in D3 (CALTRATE 600 + D) 1500 mg (600 mg elemental) -400 units per tablet Take 1 tablet by mouth daily Active multivitamin capsule Take 1 capsule by mouth daily Active glucosamine/cho ndr levy A sod (GLUCOSAMINE-CH ONDROITIN) 1,500-1,200 mg/30 mL liquid Take by mouth Active cholecalciferol (VITAMIN D-3) 2,000 unit capsule 1 capsule (2,000 Units total) Active aspirin 81 mg enteric coated tablet Take 1 tablet (81 mg total) by mouth daily 30 tablet 11 07/04/2021 Active Mounjaro 5 mg/0.5 mL pen injector Inject 5 mg under the skin once a week 12/16/2023 Active tamsulosin (FLOMAX) 0.4 mg extended release capsule Take 1 capsule (0.4 mg total) by mouth nightly Active losartan (COZAAR) 50 mg tablet Take 1 tablet by mouth nightly 90 tablet 06/01/2025 Active metoprolol XL (TOPROL-XL) 100 mg 24 hr tablet Take 1 tablet by mouth once daily 90 tablet 06/01/2025 Active rosuvastatin (CRESTOR) 40 mg tablet Take 1 tablet by mouth nightly 90 tablet 06/01/2025 Active nitroglycerin (NITROSTAT) 0.4 mg SL tablet DISSOLVE ONE TABLET UNDER THE TONGUE EVERY 5 MINUTES NEEDED FOR CHEST PAIN. DO NOT EXCEED A TOTAL OF 3 DOSES IN 15 MINUTES 25 tablet 06/16/2025 Active Active Problems Problem Noted Date Diagnosed Date Primary insomnia 05/09/2009 Obstructive sleep apnea syndrome 05/09/2009 Surgical History Surgery Date Site/Laterality Comments VASECTOMY 10/13/1989 - 10/12/1990 KIDNEY STONE SURGERY 2004, 2008 RENAL BIOPSY Medical History Medical History Date Comments Personal history of urinary calculi Nephrolithiasis - (Added by TW Conv) Personal history of other di seases of the circulatory system History of hypertension - (A dded by ROB Conv) Obstructive sleep apnea Obstruct liz sleep apnea - (Added by TW Conv) Personal history of other di seases of the respiratory system Personal history of asthma - (Added by TW Conv) Personal history of other sp ecified conditions History of insomnia - (Added by TW Conv) Hypertension TIA (transient ischemic attack) Arthritis Family History Medical History Relation Name Comments Heart disease Father Heart attack Mother Relation Name Status Comments Father (Age 86) Mother (Age 84) Social History Tobacco Use Types Packs/Day Years Used Date Smoking Tobacco: Never Smokeless Tobacco: Never Tobacco Cessation:Counseling Given: Not Answered Alcohol Use Standard Drinks/Week Comments Not Currently 0 (1 standard drink = 0.6 oz pur e alcohol) Sex and Gender Information Value Date Recorded Sex Assigned at Not on file 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[employer] Gender Identity Not on file Sexual Orientation Not on file Last Filed Vital Signs Vital Sign Reading Time Taken Comments Blood Pressure 117/77 04/26/2025 10:20 AM CDT Pulse 72 04/26/2025 10:20 AM CDT Temperature - - Respiratory Rate 16 04/26/2025 9:38 AM CDT Oxygen Saturation 98% 04/26/2025 9:38 AM CDT Inhaled Oxygen Concentration - - Weight 99.8 kg (220 lb) 04/26/2025 9:38 AM CDT Height 180.3 cm (5' 11) 04/26/2025 9:38 AM CDT Body Mass Index 30.68 04/26/2025 9:38 AM CDT Plan of Treatment Health Maintenance Due Date Last Done Comments Albumin Creatinine Ratio, Urine 1953 Colon Cancer Screening-Colonoscopy 1953 Depression Screening 1953 Hemoglobin A1C 1953 Hepatitis C Screening 1953 eGFR 1953 Dilated Eye Exam 1953 Foot Exam 1953 Hepatitis B Screening 1971 Well Visit 65+ 2018 Fall Risk Assessment 03/22/2021 03/22/2020 Covid-19 Vaccine (5 - 2024-2 6 season) 2025 02/09/2022, 08/27/2021, 12/08/2020, Additional history exists Influenza Vaccine (#1) 2025 , 08/20/2023, 06/19/2020, Additional history exists Lipid Panel 03/30/2026 03/30/2025, 04/0 12/2023, 12/08/2023, Additional history exists DTaP/Tdap/Td Vaccine (3 - Td or Tdap) 02/24/2035 02/24/2025, 10/12/2015 Pneumococcal vaccine 65+ Completed 08/10/2020, 09/14 Zoster Vaccine Completed 06/22/2021, 04/20/2021 Procedures Procedure Name Priority Date/Time Associated Diagnosis Comments POCT LIPID PANEL Routine 03/30/2025 8:21 AM CDT Lipid screening from Last 3 Months or Most Recently Relevant to Health Maintenance Results * (ABNORMAL) POCT lipid panel (03/30/2025 8:21 AM CDT) Cholesterol, POC 99 <200 MG/DL HDL, POC 33(A) >=40 mg/dL Triglycerides, POC 91 <=149 mg/dL LDL Cholesterol POC 47.8 <=129 mg/dL Cholesterol Total, POC 99 30 - 199 mg/dL Capillary blood 03/30/2025 8 :21 AM CDT us Hayder Alexis MD POINT OF CARE TEST ORDERABLES Fi nal Result from Last 3 Months or Most Recently Relevant to Health Maintenance Insurance MEDICARE MEDICARE [facility] Member Subscriber Plan / Payer (Ef fective 2015-Present) Name:Jhony Martinez Relation to Subscriber:Self Name:Jhony Martinez Payer ID:[id number] (NAIC) Group ID:[id number] Type:[facility] Address: [address] [place] [address] MEDICARE [facility] FED[employer]AL Member Subscriber Plan / Payer (Ef fective 2015-Present) Name:Jhony Martinez Relation to Subscriber:Self Name:Jhony Martinez Payer ID:[id number] (NAIC) Group ID:[id number] Type:[facility] Address: [address] [place] [address] Care Teams Mosaic Worker Relationship Specialty [place] [id number] [address] PCP - General Nurse Practitioner 04/21/25
== END 2025-08-26 09:42 | disposition home or self-care (01) ==
PROVIDERS: PCP Registered Nurse; Visit Provider Urology
DX: N40.1 Benign prostatic hyperplasia with lower urinary tract symptoms (principal); N20.0 Calculus of kidney
CPT/HCPCS: 74018